=== PATIENT | female | born 1960 | race Caucasian/White ===

== ENCOUNTER 2016-07-29 13:54 | Emergency (ER) ==
[2016-07-29] MEDS ORDERED: NS 1,000 ML ONE (14:15)
[2016-07-29 14:19] LABS: MANUAL DIFF NEEDED? NO
[2016-07-29 14:40] LABS: URINE MICRO REVIEW NEEDED? NO; URINE SOURCE CLEAN CATCH
--- NOTE | 2016-07-29 14:42 | Diag Imaging Result Document ---
PROCEDURE NAME: HEAD W/O CONTRAST - 07/29/[address]: COMPARISON: None. FINDINGS: The ventricles and sulci are normal in size and contour. There is no mass, hemorrhage, or evidence of acute ischemia. The bony calvaria is intact. The visualized paranasal sinuses and mastoid air cells are clear. IMPRESSION: Negative head CT.
[2016-07-29] MEDS ORDERED: DILAUDID IV ONE (14:43)
[2016-07-29 14:51] LABS: AGAP 12; ALBUMIN 4.4 g/dL (3.5-5.0); ALKALINE PHOSPHATASE 84 U/L (32-104); BUN 13 mg/dL (8-22); CALCIUM 9.3 mg/dL (8.8-10.2); CHLORIDE 104 mmol/L (98-107); COSMO 281; GOT 18 U/L (10-30); GPT 13 U/L (10-36); POTASSIUM 3.6 mmol/L (3.5-5.1); SODIUM 141 mmol/L (136-145); TCO2 25 mmol/L (25-35); TOTAL BILIRUBIN 0.32 mg/dL (0.20-1.00); TOTAL PROTEIN 7.2 g/dL (6.3-8.3)
[2016-07-29 14:52] LABS: BILIRUBIN URINE NEGATIVE (NEGATIVE); BLOOD URINE NEGATIVE (NEGATIVE); COLOR STRAW; GLUCOSE URINE NEGATIVE (NEGATIVE); LEUKOCYTES URINE SMALL (NEGATIVE); NITRITE URINE NEGATIVE (NEGATIVE); PROTEIN URINE NEGATIVE (NEGATIVE); SP GRAVITY URINE 1.003; TURBIDITY URINE CLEAR (CLEAR); UROBILINOGEN URINE NORMAL (NORMAL)
--- NOTE | 2016-07-29 14:52 | PROVIDER DOCUMENTATION ---
HPI-Neurological Disorder - General Chief Complaint: Brain Attack Stated Complaint: stroke like sx Time Seen by Provider: 07/29/16 14:13 Source: patient Allergies/Adverse Reactions: Patient Allergies Allergy/AdvReac Type Severity Reaction Status Date / Time No Known Allergies Allergy Verified 07/29/16 15:16 Home Medications: Home Medication List Medication Instructions Recorded Confirmed Last Taken Type Butalbital/APAP/Caffeine [Fioricet] 1 each PO Q4H PRN PRN #30 tablet 07/29/16 Unknown Rx Ibuprofen 800 mg PO QAM 07/29/16 07/29/16 07/29/16 08:30 History Naproxen Sodium [Aleve] 220 mg PO QAM 07/29/16 07/29/16 07/29/16 08:30 History - History of Present Illness-Neuro Nature of Presenting Problem: patient is a 55 y/o F that presents to the ER after having an episode of slurred speech with headache that began a noon today. patient symptoms are resolving on arrival to ER. patient had similar symptoms last week. Severity: reports: moderate Onset/Duration: reports: abrupt, this afternoon (1200) Timing: reports: still present, constant Context: reports: impaired speech. denies: paresthesia, facial droop, seizure activity Character of Altered Mental Status: reports: N/A Character of Deficits: reports: impaired speech New weakness or altered sensation location:: reports: none Cognitive Baseline: alert, oriented x3 Gait Baseline: walks without assistance Associated Symptoms: reports: headache, slurred speech. denies: fainting, dizziness, fatigue, fever/chills, seizures, vomiting, weakness Similar Symptoms Previously?: Yes Recently seen or treated by another doctor?: Yes Review of Systems - Adult - REVIEW OF SYSTEMS - ADULT Constitutional: denies: chills, fever Eyes: denies: decreased vision, blurred vision, double vision Ears, Nose, Mouth & Throat: denies: ear discharge, sinus problem, throat pain, throat swelling Cardiovascular: denies: chest pain, palpitations, syncope Respiratory: denies: cough, shortness of breath, wheezing Gastrointestinal: denies: abdominal pain, diarrhea, nausea, vomiting Genitourinary: reports: no symptoms reported Musculoskeletal: reports: no symptoms reported Integumentary: reports: no symptoms reported Neurological: reports: headache/migraines, slurred speech Psychiatric: reports: no symptoms reported Endocrine: reports: no symptoms reported Hematologic/Lymphatic: reports: no symptoms reported Allergic/Immunologic: reports: no symptoms reported All Other Systems: Reviewed and Negative Past History - Adult - PAST MEDICAL HISTORY-ADULT Review of Records: reports: Old Records Reviewed, Nursing Assessment Review, Medications Reviewed Physical Exam- Neurological - Physical Exam-Neuro Initial Vital Signs Reviewed: Yes General Appearance: alert, no apparent distress Eye Exam: bilateral eye: normal inspection, PERRL HENMT: normocephalic/atraumatic, moist mucous membranes, normal ENT inspection Head Injury: no evidence of injury. negative: ecchymosis Neck: full range of motion, normal inspection. 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 negative: aphasia, facial droop, focal weakness, motor weakness, sensory deficit Integumentary: normal color, warm/dry Psych/Mental Status: normal mood/affect, normal thought content, normal thought process, oriented x 3 - Glascow Coma Scale Best Eye Response: (4) open spontaneously Best Verbal Response: (5) oriented Best Motor Response: (6) obeys commands Total Glascow Score: 15 Progress - PLAN OF CARE/RESULTS Progress/Plan/Lab Results: plan of care-cva work up Vital Signs Temp Pulse Resp BP Pulse Ox 07/29/16 15:28 66 12 148/81 97 07/29/16 14:58 75 19 148/81 96 07/29/16 13:56 97.7 F 82 16 190/68 97 No Known Allergies Allergy (Verified 07/29/16 15:16) Butalbital/APAP/Caffeine [Fioricet] 1 each PO Q4H PRN PRN #30 tablet 07/29/16 Ibuprofen 800 mg PO QAM 07/29/16 Naproxen Sodium [Aleve] 220 mg PO QAM 07/29/16 Laboratory 07/29/16 07/29/16 07/29/16 14:30 14:30 14:05 WBC RBC Hgb Hct MCV MCH MCHC RDW Std Deviation Plt Count MPV Immature Gran % (Auto) Neut % (Auto) Lymph % (Auto) [place] % (Auto) Eos % (Auto) Baso % (Auto) Immature Gran # (Auto) Neut # (Auto) Lymph # (Auto) [place] # (Auto) Eos # (Auto) Baso # (Auto) PT INR PTT ([place] FS) Sodium Potassium Chloride Carbon Dioxide Anion Gap BUN Creatinine Estimated GFR/1.73 m2 BUN/Creatinine Ratio Glucose POC Glucose Calculated Osmolality Calcium Total Bilirubin AST ALT Alkaline Phosphatase Troponin T < 0.010 Total Protein Albumin Globulin Albumin/Globulin Ratio Urine Source CLEAN CATCH Urine Color STRAW Urine Turbidity CLEAR Urine pH 6.0 Ur Specific [place] 1.003 Urine Protein NEGATIVE Ur Glucose (Stick) NEGATIVE Ur Ketones (Stick) NEGATIVE Urine Blood NEGATIVE Urine Nitrite NEGATIVE Urine Bilirubin NEGATIVE Urobilinogen Dipstick NORMAL Urine Leukocytes SMALL A Urine WBC (Auto) <10 Urine RBC (Auto) <10 U Epithel Cells (Auto) <10 Urine Bacteria (Auto) 1+ Urine Opiates Screen NONE DETECTED Ur Oxycodone Screen NONE DETECTED Ur Methadone, Qual NONE DETECTED Ur Barbiturates Screen NONE DETECTED Ur Phencyclidine Scrn NONE DETECTED Ur Amphetamines Screen NONE DETECTED U Benzodiazepines Scrn NONE DETECTED Urine Cocaine Screen NONE DETECTED U Cannabinoids Screen NONE DETECTED 07/29/16 07/29/16 07/29/16 14:05 14:05 14:05 WBC 10.48 RBC 4.44 Hgb 14.1 Hct 41.1 MCV 92.6 MCH 31.8 H MCHC 34.3 RDW Std Deviation 14.9 H Plt Count 278 MPV 10.3 Immature Gran % (Auto) 0.2 Neut % (Auto) 66.2 Lymph % (Auto) 23.5 [place] % (Auto) 9.1 Eos % (Auto) 0.6 Baso % (Auto) 0.4 Immature Gran # (Auto) 0.02 Neut # (Auto) 6.95 H Lymph # (Auto) 2.46 [place] # (Auto) 0.95 H Eos # (Auto) 0.06 Baso # (Auto) 0.04 PT 9.9 INR 0.97 PTT (Actin FS) 26.3 Sodium 141 Potassium 3.6 Chloride 104 Carbon Dioxide 25 Anion Gap 12 BUN 13 Creatinine 0.9 Estimated GFR/1.73 m2 > 60 BUN/Creatinine Ratio 14 Glucose 98 POC Glucose Calculated Osmolality 281 Calcium 9.3 Total Bilirubin 0.32 AST 18 ALT 13 Alkaline Phosphatase 84 Troponin T Total Protein 7.2 Albumin 4.4 Globulin 2.8 Albumin/Globulin Ratio 1.6 Urine Source Urine Color Urine Turbidity Urine pH Ur Specific [place] Urine Protein Ur Glucose (Stick) Ur Ketones (Stick) Urine Blood Urine Nitrite Urine Bilirubin Urobilinogen Dipstick Urine Leukocytes Urine WBC (Auto) Urine RBC (Auto) U Epithel Cells (Auto) Urine Bacteria (Auto) Urine Opiates Screen Ur Oxycodone Screen Ur Methadone, Qual Ur Barbiturates Screen Ur Phencyclidine Scrn Ur Amphetamines Screen U Benzodiazepines Scrn Urine Cocaine Screen U Cannabinoids Screen 07/29/16 14:04 WBC RBC Hgb Hct MCV MCH MCHC RDW Std Deviation Plt Count MPV Immature Gran % (Auto) Neut % (Auto) Lymph % (Auto) [place] % (Auto) Eos % (Auto) Baso % (Auto) Immature Gran # (Auto) Neut # (Auto) Lymph # (Auto) [place] # (Auto) Eos # (Auto) Baso # (Auto) PT INR PTT (Actin FS) Sodium Potassium Chloride Carbon Dioxide Anion Gap BUN Creatinine Estimated GFR/1.73 m2 BUN/Creatinine Ratio Glucose POC Glucose 73 Calculated Osmolality Calcium Total Bilirubin AST ALT Alkaline Phosphatase Troponin T Total Protein Albumin Globulin Albumin/Globulin Ratio Urine Source Urine Color Urine Turbidity Urine pH Ur Specific [place] Urine Protein Ur Glucose (Stick) Ur Ketones (Stick) Urine Blood Urine Nitrite Urine Bilirubin Urobilinogen Dipstick Urine Leukocytes Urine WBC (Auto) Urine RBC (Auto) U Epithel Cells (Auto) Urine Bacteria (Auto) Urine Opiates Screen Ur Oxycodone Screen Ur Methadone, Qual Ur Barbiturates Screen Ur Phencyclidine Scrn Ur Amphetamines Screen U Benzodiazepines Scrn Urine Cocaine Screen U Cannabinoids Screen Orders Category Date Time Status Cardiac Monitoring DIRECTED Care 07/29/16 13:59 Active Finger Stick Blood Sugar (ED) DIRECTED Care 07/29/16 13:59 Active Misc. NRSG Communication Order DIRECTED Care 07/29/16 13:59 Active Nursing [Misc. NRSG Communication Order] DIRECTED Care 07/29/16 14:05 Active Saline Loc NOW Care 07/29/16 13:59 Active HEAD W/O CONTRAST [CT] Stat Exams 07/29/16 14:24 Draft CBC WITH ELECTRONIC DIFF [HEME] Stat Lab 07/29/16 14:05 Completed COMPREHENSIVE METABOLIC PANEL [CHEM] Stat Lab 07/29/16 14:05 Completed PROTIME WITH INR [COAG] Stat Lab 07/29/16 14:05 Completed PTT [COAG] Stat Lab 07/29/16 14:05 Completed TROPONIN T Stat Lab 07/29/16 14:05 Completed URINALYSIS W/POSS RFLX CULT [URINALYSIS] Stat Lab 07/29/16 14:30 Completed URINE CULTURE [RM] Routine Lab 07/29/16 14:54 Received URINE DRUG SCREEN Stat Lab 07/29/16 14:30 Completed 0.9% Sodium Chloride Inj [Ns] 1,000 ml Med 07/29/16 14:15 Discontinued .ROUTE As Directed Hydromorphone [Dilaudid] Med 07/29/16 14:43 Discontinued 1 mg IV NOW ONE EKG [EKG] Stat Ther 07/29/16 13:59 Ordered pt will be d/chome f/u with pcp, pt is clinically and neurologically stable - EKG 1 Time of EKG reading by physician:: 14:02 EKG Read and Signed by:: Curt Davis EKG Interpretation (*Must complete 3 of following elements*): Abnormal Rate: 81 Rhythm: NSR [place]: normal QRS: RBB (incomplete) OR Interval: normal ST Wave: normal - CT/MRI 1 CT Study: Head Impression: Normal CT Results: negative Departure - Departure Time of Disposition Order: 15:31 DIAGNOSIS: Complicated migraine Disposition: HOME 01 Certified Medical Emergency: Emergent Condition: Stable Additional Instructions: ED Follow Up Instructions: You have been treated by a care provider in the Emergency Department. These instructions are being provided to you so you can have an understanding of how to care for yourself upon discharge. Upon discharge from the Emergency Department, you are responsible for making arrangements for follow-up care by a physician of your choice. Take all prescribed medications as directed. Return to the Emergency Department immediately for any new or worsening symptoms. You may call the Physician Referral phone number at [phone] to obtain a list of Physicians who are taking new patients. Prescriptions: Butalbital/APAP/Caffeine [Fioricet] 1 each PO Q4H PRN PRN #30 tablet PRN Reason: Headache Referrals: None,PCP [Primary Care Provider] - Kit Saleem MD [CONSULTING PHYSICIAN] - Asif Bose [NON-STAFF] - Instructions: Migraine Headache Attestation - Scribe Verification/Attestation Scribe:: Thiago Perkins Acting as Scribe for:: Curt Davis Scribe documention review:: This chart was documented by a scribe and accurately reflects the service the provider performed and the decisions made by the provider. Physician Attestation - Physician Attestation I, the provider, attest to the following statement:: Curt Davis Physician documentation Attestation:: This documentation recorded by the scribe accurately reflects the service I personally performed and the decisions made by me.
[2016-07-29 14:53] LABS: UR EPITHELIAL CELLS <10 /HPF (<10); URINE BACTERIA 1+ /HPF; URINE CULTURE NEEDED? YES; URINE RBC <10 /HPF (<10); URINE WBC <10 /HPF (<10)
[2016-07-29 14:56] LABS: UR AMPHETAMINES QUAL NONE DETECTED (NONE DETECT); UR BARBITUATES QUAL NONE DETECTED (NONE DETECT); UR BENZODIAZEPIN QUAL NONE DETECTED (NONE DETECT); UR CANNABINOIDS QUAL NONE DETECTED (NONE DETECT); UR COCAINE QUAL NONE DETECTED (NONE DETECT); UR METHADONE QUAL NONE DETECTED (NONE DETECT); UR OPIATES QUAL NONE DETECTED (NONE DETECT); UR OXYCODONE QUAL NONE DETECTED (NONE DETECT); UR PCP QUAL NONE DETECTED (NONE DETECT)
[2016-07-29 14:59] LABS: BASO% 0.4 % (0.0-0.8); EOS# 0.06 X1000 (0.0-0.7); EOS% 0.6 % (0.0-10.0); HEMATOCRIT 41.1 % (37.0-47.0); HEMOGLOBIN 14.1 g/dL (12.0-16.0); IMM GRAN# 0.02 X1000 (0.0-0.04); IMM GRAN% 0.2 % (0.0-0.5); LYMPH# 2.46 X1000 (1.2-3.4); LYMPH% 23.5 % (20.5-51.1); MCH 31.8 PG (27-31); MCHC 34.3 g/dL (33-37); MCV 92.6 FL (81-99); MONO# 0.95 X1000 (0.11-0.59); MONO% 9.1 % (1.7-9.3); MPV 10.3 FL (7.4-10.4); NEUT% 66.2 % (42.2-75.2); PLT 278 X1000 (130-400); RBC 4.44 XMIL (4.2-5.4)
[2016-07-29 15:26] LABS: INR 0.97; PROTIME 9.9 Seconds (9.2-11.7); PTT 26.3 Seconds (22.0-36.0)
[2016-07-29 16:19] VITALS: BP 170/71
--- NOTE | 2016-07-30 05:34 | EKG Report ---
Test Performed on : 07/29/2016 2:02:53 PM Test Reason : Stroke like symptoms Blood Pressure : / mmHG Vent. Rate : 081 BPM Atrial Rate : 081 BPM P-R Int : 128 ms QRS Dur : 092 ms QT Int : 364 ms P-R-T Axes : 061 044 066 degrees QTc Int : 422 ms Normal sinus rhythm. Possible Left atrial enlargement Incomplete right bundle branch block Borderline ECG When compared with ECG of 06-DEC-2008 11:22, No significant change was found Unconfirmed Result
== END 2016-07-29 16:51 | disposition home or self-care (01) ==
LOC: ED 13:54
DX: G43.109 Migraine with aura, not intractable, without status migrainosus (principal); R94.31 Abnormal electrocardiogram [ECG] [EKG]; R47.81 Slurred speech; R51 Headache
CPT/HCPCS: 70450; 80053; 81001; 82948; 84484; 85025; 85610; 85730; 87077; 87088; 93005; G0480; J1170; J7030; 80324; 80345; 80346; 80349; 80353; 80358; 80361; 80365; 83992